=== PATIENT | female | born 1965 | race Hispanic/Latino ===

== ENCOUNTER 2017-02-21 16:38 | Observation (INO) | payer OTHER ==
[2017-02-21 16:51] VITALS: O2SAT 98
[2017-02-21] MEDS ORDERED: Iohexol 240 (50 ml) PO ONE (17:10)
[2017-02-21] MEDS ORDERED: Sodium Chloride 0.9% 1,000 ML IV STA (17:11)
--- NOTE | 2017-02-21 17:33 | ED PDOC ---
HPI: Abdomen Chief Complaint (Provider): abdominal pain, sent here by PMD History Per: Patient Onset/Duration Of Symptoms: Days (2) Current Symptoms Are (Timing): Still Present Severity: Severe Pain Scale Rating Of: 10 Location Of Pain/Discomfort: RLQ, Epigastric Quality Of Discomfort: Sharp, Other (twisting) Associated Symptoms: Nausea Exacerbating Factors: Upright Position Alleviating Factors: Other (supine position) Last Bowel Movement: Today Abnormal Vaginal Bleeding: No Last Menstral Period: 2 yrs ago : 3 Para: 3 (all ) <Janey Galicia - Last Filed: 02/21/17 19:07> <Bravo Agrawal - Last Filed: 02/21/17 23:28> Time Seen by Provider: 02/21/17 17:10 Chief Complaint (Nursing): Abdominal Pain Additional Complaint(s): Pt is 51 yo F with no significant medical history and extensive surgical hx of 4 hernia repairs who was sent to ED by her PMD Dr. Hardy to get eval for possible hernia. Pain has been present for 2 weeks but has gotten significantly worse in the past 2 days; pain started as epigastric and has radiated to RLQ, described as sharp and twisting, rated 10/10, is exacerbated by sitting upright , alleviated by laying supine. Pt has had 4 hernia repairs between the years of [id number]; initially got incision hernia from getting tubal ligation 21 yrs ago. Also had surgery for deviated septum and for bunion on her foot. (Janey Galicia) Past Medical History - Medical History PMH: No Chronic Diseases - Surgical History Surgical History: Hernia Repair (x4 btw [id number]), Tonsillectomy Other surgeries: for deviated septum, for bunion on foot - Family History Family History: States: [place] (father, age 65) - Social History Ex-Smoker (has not smoked in the last 12 months): Yes (last smoked 30 yrs ago) Alcohol: None Drugs: Denies <Janey Galicia - Last Filed: 02/21/17 19:07> <Bravo Agrawal - Last Filed: 02/21/17 23:28> Vital Signs: Last Vital Signs Temp 97.9 F 02/21/17 16:47 Pulse 71 02/21/17 16:47 Resp 14 02/21/17 16:47 BP 133/62 02/21/17 16:47 Pulse Ox 98 02/21/17 19:07 - Allergies Allergies/Adverse Reactions: Allergies Allergy/AdvReac Type Severity Reaction Status Date / Time Penicillins Allergy RASH Verified 02/21/17 16:47 Review of Systems Gastrointestinal: Positive for: Nausea, Abdominal Pain <Janey Galicia - Last Filed: 02/21/17 19:07> Physical Exam - Reviewed Vital Signs Reviewed: Yes - Physical Exam Appears: Positive for: Non-toxic, No Acute Distress Head Exam: Positive for: ATRAUMATIC, NORMAL INSPECTION Skin: Positive for: Normal Color, Warm, Dry. Negative for: Diaphoresis Eye Exam: Positive for: Normal appearance, EOMI, PERRL ENT: Positive for: Normal ENT Inspection. Negative for: Pharyngeal Erythema Neck: Positive for: Painless ROM, Supple Cardiovascular/Chest: Positive for: Regular Rate, Rhythm. Negative for: Murmur Respiratory: Positive for: Normal Breath Sounds. Negative for: Accessory Muscle Use, Wheezing, Respiratory Distress Gastrointestinal/Abdominal: Positive for: Bowel Sounds, Soft, Tenderness, Hernia (difficult to assess size due to body habitus) Extremity: Positive for: Normal ROM Neurologic/Psych: Positive for: Alert, Oriented, Gait (normal). Negative for: Motor/Sensory Deficits <Janey Galicia - Last Filed: 02/21/17 19:07> - Laboratory Results Result Diagrams: 02/21/17 17:50 02/21/17 17:50 - ECG O2 Sat by Pulse Oximetry: 98 <Janey Galicia - Last Filed: 02/21/17 19:07> - Laboratory Results Result Diagrams: 02/21/17 17:50 02/21/17 17:50 <Bravo Agrawal - Last Filed: 02/21/17 23:28> - Progress ED Course And Treament: 17:30 Vitals stable, pt not in acute distress CBC, CMP, UA unremarkable Urine C&S CT abdomen/pelvis w/ contrast @ 2200 pain control w/ morphine 4mg IV (Janey Galicia) Medical Decision Making <Janey Galicia - Last Filed: 02/21/17 19:07> <Bravo Agrawal - Last Filed: 08/17/17 23:28> Medical Decision Makin EXAM: CT Abdomen and Pelvis With Intravenous Contrast CLINICAL HISTORY: 51 years old, female; Pain; Abdominal pain; Periumbilical; Prior surgery; Surgery date: 6+ months; Surgery type: 4 hernia repairs. 1 umbilical TECHNIQUE: Axial computed tomography images of the abdomen and pelvis with intravenous contrast. All CT scans at this facility use one or more dose reduction techniques, viz.: automated exposure control; ma/kV adjustment per patient size (including targeted exams where dose is matched to indication; i.e. head); or iterative reconstruction technique. Coronal and sagittal reformatted images were created and reviewed. CONTRAST: 100 mL of [id number] administered intravenously. COMPARISON: No relevant prior studies available. FINDINGS: Lower thorax: There is minimal bibasilar atelectatic change or scarring. ABDOMEN: Liver: There is hepatomegaly. Gallbladder and bile ducts: Unremarkable. No calcified stones. No ductal dilation. Pancreas: Unremarkable. No mass. No ductal dilation. Spleen: There is mild splenomegaly. Adrenals: Unremarkable. No mass. Kidneys and ureters: There is nonobstructive right nephrolithiasis. Stomach and bowel: There is colonic diverticulosis without evidence for acute diverticulitis. No obstruction. Appendix: The appendix is unremarkable and seen best on axial image 113 of series 3. There are mild atherosclerotic aortic and iliac artery calcifications. PELVIS: Bladder: Unremarkable. No mass. Reproductive: Unremarkable as visualized. ABDOMEN and PELVIS: Intraperitoneal space: Unremarkable. No free air. No significant fluid collection. Bones/joints: No acute fracture. No dislocation. Soft tissues: There are surgical clips of the ventral abdomen and pelvis and there is an incisional scar in the midline of the abdomen and pelvis with diastases of the rectus abdominal sheath also present, likely related to umbilical hernia repair. Vasculature: See above. Lymph nodes: Unremarkable. No enlarged lymph nodes. IMPRESSION: 1. There is nonobstructive right nephrolithiasis. 2. There is colonic diverticulosis without evidence for acute diverticulitis. 2200 Patient is feels better and is tolerating PO. Results of CT were discussed with patient. Patient is stable for discharge Scribe Attestation Documented by Ale Campuzano acting as a scribe for Bravo Agrawal MD. Provider Attestation All medical record entries made by the Scribe were at my direction and personally dictated by me. I have reviewed the chart and agree that the record accurately reflects my personal performance of the history, physical exam, medical decision making, and the department course for this patient. I have also personally directed, reviewed, and agree with the discharge instructions and disposition. (Bravo Agrawal) Disposition - Patient ED Disposition Is Patient to be Admitted: Transfer of Care (to Dr. Agrawal) - Disposition Disposition Time: 19:04 <Janey Galicia - Last Filed: 02/21/17 19:07> <Bravo Agrawal - Last Filed: 02/21/17 23:28> - Clinical Impression Clinical Impression: Abdominal pain - Disposition Condition: STABLE
[2017-02-21] MEDS ORDERED: Iohexol 240 (50 ml) ONE (17:44)
[2017-02-21 18:11] LABS: ALB/GLOB RATIO 1.3 (1.0-2.1); ALBUMIN 4.4 g/dL (3.5-5.0); ALT/SGPT 40 U/L (9-52); AST/SGOT 26 U/L (14-36); BASO # 0.1 K/uL (0.0-0.2); BASO % 0.7 % (0.0-2.0); BLOOD UREA NITROGEN 16 mg/dl (7-17); CALCIUM 9.5 mg/dL (8.4-10.2); EOS # 0.1 K/uL (0.0-0.7); EOS % 0.9 % (0.0-4.0); GFR AFRICAN-AMERICAN > 60; GFR NON-AFRICAN AMERICAN > 60; LYMPH # 1.9 K/uL (1.0-4.3); LYMPH % 27.2 % (20.0-40.0); MEAN CELL VOLUME 83.4 fl (81.0-99.0); MEAN CORPUSCULAR HEMOGLOBIN 27.5 pg (27.0-31.0); MEAN PLATELET VOLUME 8.6 fl (7.2-11.7); MONO # 0.4 K/uL (0.0-0.8); MONO % 6.1 % (0.0-10.0); NEUT # 4.6 K/uL (1.8-7.0); NEUT % 65.1 % (50.0-75.0); NRBC % 0.1 % (0.0-0.0); RBC 4.74 Mil/uL (3.80-5.20); RED CELL DISTRIBUTION WIDTH 15.2 % (11.5-14.5); WHITE BLOOD COUNT 7.1 K/uL (4.8-10.8)
[2017-02-21 18:18] LABS: SQUAMOUS EPITHIAL 3 /hpf (0-5); URINE BILIRUBIN NEGATIVE (NEGATIVE); URINE BLOOD NEGATIVE (NEGATIVE); URINE CLARITY SLIGHTY-CLOUDY (Clear); URINE COLOR YELLOW (YELLOW); URINE GLUCOSE (UA) NEG (Normal); URINE LEUKOCYTE ESTERASE SMALL Leu/uL (Negative); URINE NITRATE NEGATIVE (NEGATIVE); URINE PROTEIN NEGATIVE (NEGATIVE); URINE UROBILINOGEN 0.2-1.0 mg/dL (0.2-1.0)
[2017-02-21] MEDS ORDERED: Iohexol 300 100 ML IJ ONE (19:53)
[2017-02-21] MEDS ORDERED: Sodium Chloride 0.9% 50 ML IV ONE (19:53)
[2017-02-22 01:41] VITALS: BP 133/69; PULSE 80; RESP 18; TEMP 98.6
--- NOTE | 2017-02-22 10:53 | CT ---
PROCEDURE: CT abdomen and pelvis dated 02/21/2017 HISTORY: abdominal pain COMPARISON: None. TECHNIQUE: Contiguous axial images of the abdomen and pelvis performed following oral and intravenous injection of approximately 100 cc Omnipaque 300 contrast material. Additional 2 dimensional sagittal and coronal reformats provided. This CT exam was performed using one or more of the following dose reduction techniques: Automated exposure control, adjustment of the mA and/or kV according to patient size, and/or use of iterative reconstruction technique. Contrast dose: 1337.71 FINDINGS: LOWER THORAX: Lung bases clear. No infiltrate effusion or basilar pneumothorax. Tiny hiatal hernia. Heart size is within range of normal. No significant pericardial effusion. LIVER: Liver is mildly enlarged measuring nearly 20 cm in CC dimension. Mild diffuse fatty hepatic infiltration. No obvious hepatic mass collection or calcification. Portal and splenic veins are opacified. GALLBLADDER AND BILE DUCTS: Gallbladder is physiologically distended. No evidence of intraluminal gallbladder calculi. PANCREAS: Unremarkable. No mass. No ductal dilatation. SPLEEN: Unremarkable. No splenomegaly. ADRENALS: There are no adrenal lesions. KIDNEYS AND URETERS: Kidneys demonstrate symmetric nephrograms. There is a small approximately 5.5 mm calculus lower pole right kidney. No evidence of hydronephrosis. BLADDER: Urinary bladder is physiologically distended. No evidence of intraluminal urinary bladder calculi. REPRODUCTIVE: Unremarkable as visualized APPENDIX: Normal-appearing retrocecal appendix best seen on axial image number [id number] BOWEL: Evaluation of the bowel is limited due to incomplete opacification. Stomach is nondistended which presumably accounts thick-walled appearance. Possibility of a gastritis not excluded. Visualized loops of small bowel exhibit normal contour and caliber. No evidence of acute mechanical small bowel obstruction. There are few scattered colonic diverticula seen along the distal descending and sigmoid colon. There is mild wall thickening of the distal descending and prior sigmoid colon which could be due to incomplete distention and peristalsis is well as muscular hypertrophy. No evidence of infiltration changes of the surrounding mesentery to suggest acute diverticulitis. PERITONEUM: Unremarkable. No fluid collection. No free air. Postoperative changes of hernia repair lower abdomen/ upper pelvis region with localized diastases of the abdominus rectus musculature. LYMPH NODES: Unremarkable. No enlarged lymph nodes. VASCULATURE: No evidence of abdominal aortic or iliac artery aneurysm. BONES: Mild multilevel degenerative spondylosis of the lower thoracic and lumbar spine. OTHER FINDINGS: None. IMPRESSION: Mild hepatomegaly with fatty hepatic infiltration. Postoperative changes of hernia repair mid lower abdomen/ upper pelvis region with diastases of the abdominus rectus musculature. Scattered colonic diverticula along the distal descending and sigmoid colon. There is mild wall thickening of the distal descending and prior sigmoid colon which could be due to incomplete distention and peristalsis is well as muscular hypertrophy. No evidence of infiltration changes of the surrounding mesentery to suggest acute diverticulitis Nonobstructing calculus lower pole right kidney.
== END 2017-02-21 22:57 | disposition home or self-care (01) ==
LOC: H.ER 16:38 → H.EROBSV 17:11
PROVIDERS: ADMIT Emergency Medicine; ATTEND Emergency Medicine
DX: R10.31 Right lower quadrant pain (principal); Z87.891 Personal history of nicotine dependence

== ENCOUNTER 2017-04-18 10:06 | Day surgery (SDC) | payer OTHER ==
[2017-04-18] MEDS ORDERED: Lactated Ringer's 500 ML IV ONE (10:25)
[2017-04-18] MEDS ORDERED: Propofol 10 mg/ml Inj (20 ML) ONE (11:46)
[2017-04-18 12:29] VITALS: TEMP 97
[2017-04-18 12:30] VITALS: BP 121/64; PULSE 70; RESP 16; O2SAT 100
== END 2017-04-18 12:28 | disposition home or self-care (01) ==
LOC: H.ENDO 10:06
PROVIDERS: ATTEND Internal Medicine Gastroenterology
DX: R10.13 Epigastric pain (principal); K31.9 Disease of stomach and duodenum, unspecified; K29.50 Unspecified chronic gastritis without bleeding
CPT/HCPCS: 43239; 88305; J2704; J7120

== ENCOUNTER 2017-05-02 09:50 | Day surgery (SDC) | payer OTHER ==
[2017-05-02] MEDS ORDERED: Lactated Ringer's 500 ML IV ONE (10:08)
[2017-05-02] MEDS ORDERED: Lidocaine 2% MPF (5 ml) Inj ONE (11:26)
[2017-05-02] MEDS ORDERED: Propofol 10 mg/ml Inj (20 ML) ONE (11:26)
[2017-05-02 12:14] VITALS: O2SAT 99
[2017-05-02 12:23] VITALS: BP 153/52; PULSE 68; RESP 18; TEMP 97.3
== END 2017-05-02 13:57 | disposition home or self-care (01) ==
LOC: H.ENDO 09:50
PROVIDERS: ATTEND Internal Medicine Gastroenterology
DX: Z12.11 Encounter for screening for malignant neoplasm of colon (principal); D12.4 Benign neoplasm of descending colon; D17.5 Benign lipomatous neoplasm of intra-abdominal organs
CPT/HCPCS: 45380; 88305; J2704; J7120

== ENCOUNTER 2017-06-13 16:02 | Emergency (ER) | payer OTHER ==
[2017-06-13 16:09] VITALS: BP 164/73; PULSE 90; RESP 16; TEMP 98.1; O2SAT 100
--- NOTE | 2017-06-13 16:43 | ED PDOC ---
Lower Extremity Pain/Injury Time Seen by Provider: 06/13/17 16:15 Chief Complaint (Nursing): Lower Extremity Problem/Injury Chief Complaint (Provider): Left Leg Pain History Per: Patient History/Exam Limitations: no limitations Onset/Duration Of Symptoms: Days (x 1) Current Symptoms Are (Timing): Still Present Additional Complaint(s): 51-year-old female presents for eval of pain and swelling to left leg that started yesterday. Patient denies history of trauma or injury. Patient noticed slight swelling to ankle region of the left leg and was seen today by primary doctor who advised that she come to ER for Doppler to rule out DVT. Patient denies any history of DVT, no chest pain, SOB or [place]. No recent travel or prolonged immobilization. No meds taken for pain relief prior to arrival. PMD: Dr. Donovan Hardy Past Medical History Reviewed: Historical Data, Nursing Documentation, Vital Signs Vital Signs: Last Vital Signs Temp 98.1 F 06/13/17 16:05 Pulse 90 06/13/17 16:05 Resp 16 06/13/17 16:05 BP 164/73 H 06/13/17 16:05 Pulse Ox 100 06/13/17 16:05 - Medical History Other PMH: morbid obesity - Surgical History Surgical History: Hernia Repair (x4 btw [id number]), Tonsillectomy Other surgeries: left leg surgery - Family History Family History: States: [place] (father, age 65) - Social History Current smoker - smoking cessation education provided: No Alcohol: None Drugs: Denies - Home Medications Home Medications: Ambulatory Orders Medication Instructions Recorded Famotidine [Pepcid] 20 mg PO DAILY 05/02/17 Ibuprofen [Motrin Tab] 800 mg PO Q8 PRN #20 tab 06/13/17 - Allergies Allergies/Adverse Reactions: Allergies Allergy/AdvReac Type Severity Reaction Status Date / Time Penicillins Allergy Mild RASH Verified 06/13/17 16:05 Sulfa (Sulfonamide Allergy RASH Verified 06/13/17 16:05 Antibiotics) sulfur [From Sulfur-8] Allergy RASH Verified 06/13/17 16:05 Wells Criteria for PE - Wells Criteria for Pulmonary Embolism Clinical Signs and Symptoms of DVT: Yes P.E is #1 Diagnosis, or Equally Likely: No Heart Rate >100: No Immobilization at least 3 days;Surgery previous 4 weeks: No Previous, objectively diagnosed PE or DVT: No Hemoptysis: No Malignancy w/treatment within 6 months, or palliative: No Total Score: 3 Review of Systems ROS Statement: Except As Marked, All Systems Reviewed And Found Negative Constitutional: Negative for: Fever, Chills Cardiovascular: Negative for: Chest Pain Respiratory: Negative for: Shortness of Breath, SOB with Exertion Musculoskeletal: Positive for: Leg Pain (left leg pain and swelling) Physical Exam - Reviewed Nursing Documentation Reviewed: Yes Vital Signs Reviewed: Yes - Physical Exam Appears: Positive for: Well, Non-toxic, No Acute Distress Head Exam: Positive for: ATRAUMATIC, NORMAL INSPECTION, NORMOCEPHALIC Skin: Positive for: Normal Color Eye Exam: Positive for: Normal appearance Cardiovascular/Chest: Positive for: Regular Rate, Rhythm Respiratory: Positive for: Normal Breath Sounds. Negative for: Respiratory Distress Extremity: Positive for: Swelling (diffusely to left leg), Other (multiple varicose veins in left leg; small superficial ulcer to left distal lobo with no acute infection, normal distal sensation) Neurologic/Psych: Positive for: Alert, Oriented, Gait (steady) - ECG O2 Sat by Pulse Oximetry: 100 (RA) Pulse Ox Interpretation: Normal - Other Rad Doppler left leg X-Ray: Read By Radiologist X-Ray Interpretation: no DVT, varicose veins at ankle, edema Medical Decision Making Medical Decision Making: Time: 16:41 Initial Impression: 53 y/o female with left leg pain Initial Plan: --Tylenol --Duplex Lower Extremity US Patient aware of ultrasound results. Case was discussed with primary doctor, Dr. Hardy who was made aware of doppler results. He agrees with plan to discharge patient with instructions to ice and elevate affected leg and take NSAIDs for pain. Patient was instructed to follow up next week with primary doctor. Scribe Attestation: Documented by Abundio Cervantes, acting as a scribe for Maye Lisa PA-C Provider Scribe Attestation: All medical record entries made by the Scribe were at my direction and personally dictated by me. I have reviewed the chart and agree that the record accurately reflects my personal performance of the history, physical exam, medical decision making, and the department course for this patient. I have also personally directed, reviewed, and agree with the discharge instructions and disposition. Disposition - Clinical Impression Clinical Impression: Varicose veins of left leg with edema - Patient ED Disposition Is Patient to be Admitted: No Counseled Patient/Family Regarding: Studies Performed, Diagnosis, Need For Followup, Rx Given - Disposition Referrals: Donovan Hardy MD [Family Provider] - Disposition: Routine/Home Disposition Time: 19:23 Condition: STABLE Additional Instructions: Rest, ice and elevate affected leg. Take prescription medications as directed. Follow-up with primary doctor early next week. Prescriptions: Ibuprofen [Motrin Tab] 800 mg PO Q8 PRN #20 tab PRN Reason: Pain, Moderate (4-7) Instructions: Leg Edema (ED), Varicose Veins (ED) Forms: [employer] (British)
--- NOTE | 2017-06-14 10:51 | US ---
HISTORY: pain, swelling left leg . PRIORS: None. FINDINGS: 2-D, color and duplex Doppler analysis of the lower extremity venous circulation using routine protocol from the femoral veins through the popliteal veins. Venous compressibility: Normal. Flow and augmentation patterns: Normal. Visualized veins upper third of calf: Normal. Barrera cyst: None. Mild subcutaneous edema and superficial varicosities. . IMPRESSION: No sonographic or Doppler evidence for DVT in left lower extremity.
== END 2017-06-13 19:33 | disposition home or self-care (01) ==
LOC: H.ER 16:02
DX: I83.813 Varicose veins of bilateral lower extremities with pain (principal); E66.01 Morbid (severe) obesity due to excess calories; Z88.0 Allergy status to penicillin

== ENCOUNTER 2017-07-17 16:30 | Emergency (ER) | payer OTHER ==
[2017-07-17 16:39] VITALS: TEMP 98.2
--- NOTE | 2017-07-17 18:10 | ED PDOC ---
HPI: General Adult Time Seen by Provider: 07/17/17 17:22 Chief Complaint (Nursing): Dizziness/Lightheaded Chief Complaint (Provider): leg pain History Per: Patient History/Exam Limitations: no limitations Additional Complaint(s): 51yo M in ED for eval of right calf pain since yesterday with associated dizziness. PERC negative, however admits she has spontaneous bleeding in her gum made worse with brushing her teeth, however has never been examined for bleeding d/o no recent injury no groin pain no SOB. pt with varicose veins. Past Medical History Reviewed: Historical Data, Nursing Documentation, Vital Signs Vital Signs: Last Vital Signs Temp 98.2 F 07/17/17 16:36 Pulse 62 07/17/17 18:35 Resp 20 07/17/17 18:35 BP 141/49 L 07/17/17 18:35 Pulse Ox 100 07/17/17 18:43 - Medical History PMH: No Chronic Diseases Denies: Chronic Kidney Disease - Surgical History Surgical History: Hernia Repair (x4 btw [id number]), Tonsillectomy - Family History Family History: States: Unknown Family Hx, [place] (father, age 65) - Home Medications Home Medications: Ambulatory Orders Medication Instructions Recorded Famotidine [Pepcid] 20 mg PO DAILY 05/02/17 Ibuprofen [Motrin Tab] 800 mg PO Q8 PRN #20 tab 06/13/17 - Allergies Allergies/Adverse Reactions: Allergies Allergy/AdvReac Type Severity Reaction Status Date / Time Penicillins Allergy Mild RASH Verified 07/17/17 16:36 Sulfa (Sulfonamide Allergy RASH Verified 07/17/17 16:36 Antibiotics) sulfur [From Sulfur-8] Allergy RASH Verified 07/17/17 16:36 Review of Systems ROS Statement: Except As Marked, All Systems Reviewed And Found Negative Constitutional: Negative for: Fever, Chills, Sweats Musculoskeletal: Positive for: Leg Pain Physical Exam - Reviewed Nursing Documentation Reviewed: Yes Vital Signs Reviewed: Yes - Physical Exam Appears: Positive for: Well, Non-toxic, No Acute Distress Skin: Positive for: Normal Color, Warm, DRY Cardiovascular/Chest: Positive for: Regular Rate, Rhythm Respiratory: Positive for: CNT, Normal Breath Sounds Extremity: Positive for: Tenderness, Calf Tenderness (right calf ), Swelling, Other (nuerov vasc intact). Negative for: Deformity Neurologic/Psych: Positive for: Alert, Oriented - Laboratory Results Result Diagrams: 07/17/17 18:44 07/17/17 18:44 - ECG O2 Sat by Pulse Oximetry: 100 - CT Scan/US US Other Rad Studies (CT/US): Radiology Report Reviewed ((-) DVT) - Progress ED Course And Treament: r/o DVT Orders Category Date Time Status ELECTROCARDIOGRAM Stat Cardiology 07/17/17 17:24 Ordered COMP METABOLIC PANEL Stat Chem 07/17/17 17:48 Ordered EKG-ED [EDNURTX] STAT ED Care 07/17/17 17:24 Active CBC (WITH DIFFERENTIAL) Stat CHRISTOPHER 07/17/17 17:48 Ordered PARTIAL THROMBOPLASTIN TIME [COAG] Stat CHRISTOPHER 07/17/17 17:48 Ordered PROTHROMBIN TIME [COAG] Stat CHRISTOPHER 07/17/17 17:48 Ordered Glucose, Blood, POC STAT Pt Care 07/17/17 17:24 Active DUPLEX LOWER EXTRM VEIN BILAT [US] Stat US 07/17/17 17:31 Ordered Medical Decision Making Medical Decision Making: VS have been stable while pt in ER-pt without SOB, chest pain back pain pt labs are WNL on PE: only calf pain. Udip: normal low suspicion for PE. negative for DVT. no hx of PE/DVT. (+) varicose veins. Pt advised to continue monitoring symptoms most likely viral syndrome however if with chest pain/SOB/back pain/persistent calf pain and worsening dizziness to return to ED for PE workup. pt understands and agrees with plan. Disposition - Clinical Impression Clinical Impression: Dizziness, Calf pain - Patient ED Disposition Is Patient to be Admitted: No Counseled Patient/Family Regarding: Studies Performed, Diagnosis, Need For Followup, Rx Given - Disposition Disposition: Routine/Home Disposition Time: 19:56 Condition: STABLE Instructions: Dizziness (ED), Lightheadedness (ED), Viral Syndrome (ED) Forms: [employer] (Azeri)
--- NOTE | 2017-07-17 18:39 | US ---
PROCEDURE: Bilateral lower extremity venous duplex Doppler. HISTORY: calf pain COMPARISON: None available. TECHNIQUE: Bilateral common femoral, superficial femoral, popliteal and posterior tibial veins were evaluated. Flow was assessed with color Doppler, compressibility, assessment of phasic flow and augmentation response. FINDINGS: COMMON FEMORAL VEIN: Right CFV: Normal spectral waveform, compressibility and augmentation response. Left CFV: Normal spectral waveform, compressibility and augmentation response. SUPERFICIAL FEMORAL VEIN: Right SFV: Normal spectral waveform, compressibility and augmentation response. Left SFV: Normal spectral waveform, compressibility and augmentation response. POPLITEAL VEIN: Right Popliteal: Normal spectral waveform, compressibility and augmentation response. Left Popliteal: Normal spectral waveform, compressibility and augmentation response. POSTERIOR TIBIAL VEIN: Right PTV: Normal spectral waveform, compressibility and augmentation response. Left PTV: Normal spectral waveform, compressibility and augmentation response. OTHER FINDINGS: None. IMPRESSION: No evidence of deep venous thrombosis.
[2017-07-17 18:52] LABS: BASO % 0.6 % (0.0-2.0); EOS # 0.1 K/uL (0.0-0.7); EOS % 1.2 % (0.0-4.0); HEMOGLOBIN 13.5 g/dL (12.0-16.0); MEAN CELL VOLUME 84.6 fl (81.0-99.0); MEAN CORPUSCULAR HEMOGLOBIN 27.2 pg (27.0-31.0); MEAN CORPUSCULAR HGB CONC 32.2 g/dL (33.0-37.0); MEAN PLATELET VOLUME 8.6 fl (7.2-11.7); MONO # 0.4 K/uL (0.0-0.8); NEUT # 4.3 K/uL (1.8-7.0); NEUT % 63.2 % (50.0-75.0); NRBC % 0.3 % (0.0-0.0); RBC 4.95 Mil/uL (3.80-5.20); RED CELL DISTRIBUTION WIDTH 15.3 % (11.5-14.5); WHITE BLOOD COUNT 6.8 K/uL (4.8-10.8)
[2017-07-17 19:11] LABS: ALB/GLOB RATIO 1.2 (1.0-2.1); ALBUMIN 4.3 g/dL (3.5-5.0); ALT/SGPT 34 U/L (9-52); AST/SGOT 32 U/L (14-36); BLOOD UREA NITROGEN 15 mg/dl (7-17); CALCIUM 9.6 mg/dL (8.4-10.2); GFR AFRICAN-AMERICAN > 60; GFR NON-AFRICAN AMERICAN > 60
[2017-07-17 19:18] LABS: INR 0.9 (0.9-1.2); PROTHROMBIN TIME 10.1 Seconds (9.8-13.1)
[2017-07-17 20:25] VITALS: BP 136/62; PULSE 77; RESP 17; O2SAT 97
--- NOTE | 2017-07-18 08:30 | CARD ---
APPROVED REPORT EKG Measurement Heart [id number] <Conclusion> Normal sinus rhythm Normal ECG
== END 2017-07-17 20:15 | disposition home or self-care (01) ==
LOC: H.ER 16:30
DX: R42 Dizziness and giddiness (principal); M79.661 Pain in right lower leg; Z88.0 Allergy status to penicillin